=== PATIENT | female | born 1970 | race Two or more races ===

== ENCOUNTER 2019-01-15 12:17 | Day surgery (SDC) | payer MEDICAID ==
[~2019-01-15] VITALS: Ht 165.1 cm; Wt 104.3 kg
[2019-01-15 16:22] LABS: Basophils # (auto) 0.1 uL; Basophils % (auto) 0.8 % (0.0-2.0); Eosinophils # (auto) 0.3 uL; Hemoglobin 12.5 g/dL (12.2-16.2); Monocytes # (auto) 0.5 uL; Monocytes % (auto) 5.8 % (0.0-12.0); White Blood Cell 8.3 10^3/uL (4.4-10.8)
[2019-01-15 16:24] LABS: Eosinophils % (auto) 3.9 % (0.0-7.0); Hematocrit 37.6 % (36.0-46.0); Lymphocytes # (auto) 2.1 uL; Mean Corpuscular Hemoglobin 25.2 pg (28.0-32.0); Mean Corpuscular Hgb Conc. 33.2 g/dL (32.0-36.0); Mean Corpuscular Volume 76.1 fL (80.0-100.0); Neutrophils # (auto) 5.4 uL; Neutrophils % (auto) 64.5 % (37.0-80.0); Nucleated Red Blood Cells % 0.1 %; Platelet Count (auto) 305 10^3/uL (140-450); Red Blood Cells 4.94 10^6/uL (4.0-5.20); Red Cell Distribution Width 16.5 % (11.8-14.3)
[2019-01-15 16:39] LABS: INR 0.97 (0.9-1.15); Partial Thromboplastin Time 29.3 sec (23.64-32.05)
[2019-01-15 16:40] LABS: Calcium 8.7 mg/dL (8.5-10.1); Potassium 3.7 mmol/L (3.5-5.1)
[2019-01-15 16:42] LABS: BUN/Creatinine Ratio 16.9
[2019-01-15] MEDS ORDERED: ceFAZolin 1GM/50ML 50 ML IV ONE (19:12)
[2019-01-15] MEDS ORDERED: PROPOFOL 10 MG/ML 20 ML IV ONE (19:35)
[2019-01-15] MEDS ORDERED: MEPERIDINE HCL (25 MG/ML) 1ML VIAL ONE (19:41)
[2019-01-15] MEDS ORDERED: MIDAZOLAM HCL 1MG/1ML-2 ML VIAL ONE (19:41)
[2019-01-15] MEDS ORDERED: DexAMETHasone SOD PHOS 10MG/1ML VIAL INJ ONE (19:43)
[2019-01-15] MEDS ORDERED: ONDANSETRON HCL 4 MG/2 ML VIAL IV ONE (19:45)
[2019-01-15] MEDS ORDERED: LABETALOL HCL 5 MG/ML 4ML SYRINGE IV PRN (19:45)
[2019-01-15] MEDS ORDERED: ePHEDrine SULFATE 50 MG/ML AMP IV PRN (19:45)
[2019-01-15] MEDS ORDERED: MIDAZOLAM HCL 1MG/1ML-2 ML VIAL IV PRN (19:45)
[2019-01-15] MEDS ORDERED: HYDROmorphone HCL 2 MG/ML VL IV PRN (19:45)
[2019-01-15] MEDS ORDERED: KETOROLAC TROMETH 30 MG/ML 1ML VIAL IV ONE (19:45)
[2019-01-15] MEDS ORDERED: MORPHINE SULFATE 4 MG/ML SYR/VIAL IV ONE (20:00)
[2019-01-15] MEDS ORDERED: methylPREDNISolone ACETATE 80 MG/ML VL ONE (20:09)
[2019-01-15] MEDS ORDERED: KETOROLAC TROMETH 60MG/2ML VIAL ONE (20:38)
[2019-01-15 20:59] VITALS: BP 130/89
== END 2019-01-15 20:17 | disposition home or self-care (01) ==
LOC: SUR 12:17
PROVIDERS: ATTEND Podiatrist Foot & Ankle Surgery
DX: M72.2 Plantar fascial fibromatosis (principal); J45.909 Unspecified asthma, uncomplicated; E66.8 Other obesity; Z68.38 Body mass index [BMI] 38.0-38.9, adult
CPT/HCPCS: 29893; 36415; 71045; 80048; 84702; 85025; 85610; 85730; 93005; J0690; J1040; J1100; J1885; J2175; J2250; J2704; L3260

== ENCOUNTER → 2019-04-01 | Outpatient (CLI) | payer MEDICAID | END | disposition home or self-care (01) | LOC: LAB 15:00 | PROVIDERS: ATTEND Podiatrist Foot & Ankle Surgery | DX: B07.9 Viral wart, unspecified (principal) ==